=== PATIENT | male | born 1950 | race Hispanic/Latino ===

== ENCOUNTER 2018-01-27 08:08 | Outpatient (CLI) | payer BC ==
[2018-01-27 10:27] LABS: Bilirubin Negative (Negative); Blood, Urine Negative (Negative); Clarity CLEAR (Clear); Glucose, Urine (Dipstick) 250 mg/dL (Negative); Leukocyte Negative (Negative); Nitrite Negative (Negative); Protein, Urine (Dipstick) Negative (Neg-Trace); pH, Urine 6.5 (5.0-9.0)
[2018-01-27 10:31] LABS: Bacteria/HPF None Seen HPF (None Seen); Hyaline Casts/LPF 0-3 HYALINE CAST LPF (0-3 Hyaline); RBC/HPF 0-3 HPF (0-3); Squamous Epithelial None Seen HPF (0-3); WBC/HPF None Seen HPF (0-3)
== END 2018-01-27 08:09 | disposition home or self-care (01) ==
LOC: LABBT 08:08
PROVIDERS: ATTEND Orthopaedic Surgery
DX: Z01.818 Encounter for other preprocedural examination (principal); M17.31 Unilateral post-traumatic osteoarthritis, right knee
CPT/HCPCS: 81001; 87081

== ENCOUNTER 2018-01-27 08:45 | Inpatient (IN) | payer BC, MEDICARE ==
[2018-01-27 08:38] VITALS: BMI 34.2
--- NOTE | 2018-02-03 13:40 | HP ---
HISTORY OF PRESENT ILLNESS: The patient is a 67-year-old male with a long history of progressive pro blems with his right knee which began after having arthroscopic meniscectomy approximately 5 years ag o. He has had progressive pain, difficulty ambulating, walking and getting dressed. The pain is now interfering with day to day activities and has persisted despite rest, restriction of activities, an d use of anti-inflammatory medications. PAST MEDICAL HISTORY: The patient has history of hyperlipidemia, diabetes, and has been seen and venice ared for surgery by Dr. Limon. CURRENT MEDICATIONS: Include metformin and Lipitor. ALLERGIES: Has no known allergies. FAMILY HISTORY/SOCIAL HISTORY/REVIEW OF SYSTEMS: Otherwise, unremarkable. 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 PHYSICAL EXAMINATION: GENERAL: Reveals a healthy male. HEENT: Unremarkable. NECK: Supple. CHEST: Clear. HEART: Regular rate and rhythm. ABDOMEN: Soft, nontender. RECTAL/GENITAL: Exams are deferred. EXTREMITIES: Findings of the right knee, there is mild effusion. There is slight varus deformity. There is no point tenderness or healed arthroscopy puncture sites. Range of motion is 10-120 degrees . There is pain with further flexion. There is no instability. There is a right antalgic gait. Pu lses are trace. Neurovascular exam is intact. Good capillary refill. LABORATORY AND X-RAY FINDINGS: X-rays of the right knee with tricompartmental degenerative arthritis with minimal joint space remaining medially and vascular calcifications. IMPRESSION: 1. Post-traumatic degenerative arthritis, right knee. 2. Adult onset diabetes mellitus. 3. Hypercholesterolemia. PLAN: Right total knee replacement. The nature of the surgery, length of recovery, and potential co mplications such as infection, loss of motion, incomplete relief, delayed wound healing, neurovascula r injury, thromboembolic phenomena, possible transfusion, and need for revision have been discussed i n detail.
[2018-02-07] MEDS ORDERED: Ropivacaine 0.5% HCl/PF (150 MG/30 ML VIAL) ONE (06:57)
[2018-02-07] MEDS ORDERED: Ropivacaine 0.2% HCl/PF (40 MG/20 ML VIAL) ONE (06:57)
[2018-02-07] MEDS ORDERED: PROPOFOL 200 MG/20 ML VIAL ONE (07:00)
[2018-02-07] MEDS ORDERED: Ondansetron HCl/PF 4 MG/2 ML Vial ONE (07:00)
[2018-02-07] MEDS ORDERED: CEFAZOLIN/Water 2 GM/20 ML SYRINGE ONE (08:44)
[2018-02-07] MEDS ORDERED: Sodium Chloride 0.9% 100 ML ONE (08:44)
[2018-02-07] MEDS ORDERED: Vancomycin HCl 1.5 GM in Sodium Chloride 0.9% 250 ML 300 ML IVPB SCH ×2 (09:00→21:00)
[2018-02-07] MEDS ORDERED: Fentanyl 100 MCG/2 ML VIAL ONE ×2 (09:24→11:39)
[2018-02-07] MEDS ORDERED: Midazolam HCl 2 mg/2 ml Vial ONE (09:24)
[2018-02-07] MEDS ORDERED: traMADol HCl 50 MG TAB PO PRN ×3 (09:37→15:04)
[2018-02-07] MEDS ORDERED: Ondansetron HCl/PF 4 MG/2 ML Vial IVP PRN ×2 (09:37→15:04)
[2018-02-07] MEDS ORDERED: Ropivacaine HCl/PF 250 ML in Premix Bag 1 BAG NERVE BLCK SCH (09:37)
[2018-02-07] MEDS ORDERED: HYDROcodone/Acetaminophen 10/325 mg Tablet PO PRN ×3 (09:37→15:04)
[2018-02-07] MEDS ORDERED: Promethazine HCl 25 MG/ML VIAL IM PRN (09:37)
[2018-02-07] MEDS ORDERED: Zolpidem Tartrate 5 MG TAB PO PRN ×2 (09:37→15:04)
[2018-02-07] MEDS ORDERED: Fentanyl 100 MCG/2 ML VIAL IV PRN (09:38)
[2018-02-07] MEDS ORDERED: Ketorolac Tromethamine 30 MG/ML VIAL IVP SCH ×2 (12:00→15:04)
[2018-02-07] MEDS ORDERED: Bupivacaine/Epinephrine 0.25% 30 ML VIAL ONE (12:29)
[2018-02-07] MEDS ORDERED: Tranexamic Acid 1,000 MG in Sodium Chloride 0.9% 100 ML IVPB SCH ×2 (14:15→15:04)
[2018-02-07] MEDS ORDERED: diphenhydrAMINE 25 MG CAP PO PRN (15:04)
[2018-02-07] MEDS ORDERED: Fentanyl 100 MCG/2 ML VIAL SLOW IVP PRN ×2 (15:04)
[2018-02-07] MEDS ORDERED: Acetaminophen 325 MG TAB PO PRN (15:04)
[2018-02-07] MEDS ORDERED: Promethazine HCl 25 MG/ML VIAL SLOW IVP PRN (15:04)
--- NOTE | 2018-02-07 15:22 | RAD ---
RIGHT KNEE TWO VIEWS: History: Total knee arthroplasty, post op. FINDINGS/IMPRESSION: There are recent post op changes of total knee arthroplasty in good position and alignment. Soft tiss ue air is present. POS: H
--- NOTE | 2018-02-07 17:01 | OP ---
DATE OF PROCEDURE: 02/07/2018 PREOPERATIVE DIAGNOSIS: End-stage tricompartmental osteoarthritis of right knee with degenerative ge nu varum and flex contracture. POSTOPERATIVE DIAGNOSIS: End-stage tricompartmental osteoarthritis of right knee with degenerative g enu varum and flex contracture. OPERATIVE PROCEDURE: Cemented cruciate-sparing computer-assisted navigated right total knee arthropl germán. SURGEON: Tao Marinelli M.D. SWEET POTATO DISINTEGRATOR: Jad Mayes PA-C. ANESTHESIA: General via laryngeal mask airway augmented with indwelling adductor canal block with a single shot sciatic block. COMPONENTS USED: [facility] [employer], Triathlon, cemented cruciate-sparing size 5 femoral component with a cemented cruciate-sparing size 5 universal tibial baseplate, 11 mm polyethylene fixed bearing insert, A35 patellar button. TOURNIQUET TIME: 91 minutes at 300 mmHg. ESTIMATED BLOOD LOSS: Less than 100 mL. FINDINGS: End-stage severe degenerative tricompartmental disease, bone on bone arthrosis, periarticu lar osteophyte formation, large serous effusion, hypertrophic synovium. DRAINS: None. SPECIMENS: None. COMPLICATIONS: None. COUNTS: Correct. INPUT: 1500 crystalloid. OUTPUT: None recorded. INDICATIONS FOR SURGERY: Edwardo is a 67-year-old male who has had progressive right knee pain amplified with standing and walking for the last 5-7 years, failed conservative management and elected to proceed with total knee arthroplasty as a definitive treatment of his pain. PROCEDURE IN DETAIL: After informed consent was obtained in the preoperative holding area. The gracie ent was taken to the operative suite where general anesthesia was induced. Once adequate level of ge neral anesthesia was obtained, the patient was positioned and a well-padded tourniquet was placed katharina und the right proximal thigh. The right lower extremity was then prepped and draped in the usual jim rile fashion. Prior to exsanguination, a time out was called and all members of the surgical team ag césar upon site, surgeon, and patient. The extremity was then exsanguinated and the tourniquet was ra ised. A midline longitudinal incision was then made directly over the patella extending two fingerbr eadths above the superior pole of the patella and two fingerbreadths inferior to the inferior patella r pole of the patella. Deeper subcutaneous layers were dissected sharply and local bleeding was cont rolled with Bovie electrocautery. A quad tendon longitudinal split was then made sharply and a media n parapatellar arthrotomy was carried out both sharp and with Bovie electrocautery, carried down to o ne fingerbreadth medial to the tibial tubercle. The knee was then placed into flexion and the patell a was everted nicely, and a copious fat pad ectomy was performed allowing for greater exposure of the tibia. The computer-assisted distal femoral fiducial was then placed and pinned firmly, and the dis betzaida femoral cutting guide was pinned firmly into place. The oscillating saw was then used to remove the appropriate amount of bone. The 4-in-1 cutting block was then placed on the distal femur and the oscillating saw was used to remove the appropriate amount of bone off of the anterior, posterior, an d chamfer cuts. After completion of the chamfer cuts, the box-cutting guide was placed, malleted fir mly into place and pinned securely, and an osteotome was used to make the distal cut and the oscillat ing saw was then used to make the medial and lateral box cuts. This came out quite nicely and was re moved with Bovie electrocautery, and the oscillating saw was then used to broaden the lateral medial resendez of the box cut. After completion of bone cuts, the anterior cruciate ligament was resected sha rply and the posterior cruciate ligament retractor was placed and the tibia was subluxed for better e xposure. Partial meniscectomies were carried out, and the tibial computer-assisted fiducial was pinn ed, and the cutting guide was placed. Oscillating saw was then used to remove the bone with Hohmann retractors used to take care and protect the collateral ligaments. After the tibial resection was pe rformed, a laminar sonographer was placed in between the freshened bone cuts. The knee placed at 90 deg justin and further bilateral meniscectomies were carried out, and the curved osteotome and curettage wa s used to remove any excess bone spurs in the posterior compartment. The trial femoral component, ti bial baseplate were placed with the appropriate polyethylene trial insert with an appropriate polyeth ylene spacer and patellar button. The knee was taken through full range of motion with flexion and e xtension from 0-90 degrees and patellar broach squarely in the trochlea without any squinting or sub luxation noted. The knee was also stable to varus and valgus stressing at 0, 15, 45, and 90 degrees of flexion. The drawer was negative. All trial components were then removed and the keel punch was u sed to provide the appropriate defect in the tibia with a mallet. The freshened bone cuts were copio usly irrigated with pulsatile lavage of about 1-1/2 liters to remove all excess debris. The freshene d bone cuts were then dried and with suction and lap sponge. The knee was placed in flexion and retr actors were placed to provide access to all bone cuts. Tobramycin impregnated methyl methacrylate ce ment was then placed on the freshened bone cuts and implants which were malleted firmly into place. Curettage and [place] elevators were used to remove any excess bone cement. The knee was placed into f ull extension and the patellar button was placed under compression, and the cement was allowed to cur e. Once completed, the components were again taken through full range of motion and copious irrigati on of the knee was carried out with another liter of normal saline. All components were inspected fu lly with full range of motion and varus and valgus stressing. There was no laxity noted and full exte nsion was observed clinically. Primary closure was accomplished with #2 interrupted Vicryl stitch of the arthrotomy defect. This was oversewn with a #2 running Quill barbed stitch. The subcutaneous l jesús was then closed with a running 0 barbed Monocryl stitch and skin closure accomplished with a run victor manuel subcuticular 3-0 Monocryl barbed Quill stitch and augmented with cement on the skin. Tourniquet was lowered. Good spontaneous return of distal pulses was noted clinically and a sterile dressing w as applied to the incision. The procedure was terminated without any complications. The patient was awakened in the operative suite and taken to the recovery room in stable condition.
[2018-02-07] MEDS ORDERED: HumaLOG 300 UNITS/3 ML VIAL SC PRN ×2 (17:13)
[2018-02-07] MEDS ORDERED: Dextrose 50% Abboject 50 ML SYRINGE SLOW IVP PRN (17:13)
[2018-02-07] MEDS ORDERED: Dextrose 5% in Water 1,000 ML IV PRN (17:13)
[2018-02-07] MEDS: Ferrous Gluconate 324 MG TAB PO SCH ×2 (17:42→20:56)
[2018-02-07] MEDS: Aspirin 81 mg Enteric Coated Tablet PO SCH ×2 (17:42→21:09)
[2018-02-07] MEDS: Multivitamin W/ Minerals 1 TAB PO SCH (17:43)
[2018-02-07] MEDS: Senokot S 8.6-50 MG TAB PO SCH ×2 (17:43→20:57)
[2018-02-07] MEDS: Sodium Chloride 0.9% 1,000 ML IV SCH (17:44)
--- NOTE | 2018-02-07 17:47 | CON ---
DATE OF CONSULTATION: 02/07/2018 PRIMARY CARE PHYSICIAN: Timothy Limon M.D. REQUESTING DOCTOR: Tao Marinelli M.D. with Orthopedics. REASON FOR CONSULTATION: Medical management, status post total knee arthroplasty. HISTORY OF PRESENT ILLNESS: Mr. Kwon is a pleasant 67-year-old male with a history of diabetes mellitus type 2, on oral medications, hypertension, essential and hyperlipidemia who is postop day 0 from right total knee arthroplasty. There were no noted intraoperative complications. He has already been out of bed today, walking over 100 steps. He denies any fevers or chills. No ch est pain or shortness of breath. No nausea, vomiting, diarrhea, or constipation. PAST MEDICAL HISTORY: 1. Diabetes mellitus type 2. 2. Hypertension, essential. 3. Hyperlipidemia. REGULAR HOME MEDICATIONS: 1. Aspirin 81 mg daily, atorvastatin 10 mg p.o. at bedtime. 2. Lisinopril 10 mg p.o. at bedtime. 3. Metformin 500 mg p.o. b.i.d. 4. Januvia 100 mg p.o. at bedtime. PAST SURGICAL HISTORY: 1. Left thumb reattachment remotely. 2. Bilateral intraocular lens replacement. 3. Left total knee arthroplasty by Jaxon morelos in 06/2012. ALLERGIES: NKDA. FAMILY HISTORY: Negative for clotting or bleeding disorder, no immune dysfunction. SOCIAL HISTORY: Significant for 2-3 beers per day. He does not have any withdrawal symptoms when he goes long periods without drinking. Denies any tobacco use. No IV drug use. He is , [place] mous. His accompanies him. REVIEW OF SYSTEMS: A 12-point review of systems was performed and is negative for all systems except as stated as above. PHYSICAL EXAMINATION: VITAL SIGNS: Temperature current is 97.7, pulse on arrival to floor is 102, blood pressure 153/82, r espiratory rate 18, satting 98% on room air. GENERAL: He is awake. He is alert. He is oriented x3. He is a well-developed, well-nourished Lati n [place] male appears to be in no acute distress. HEENT: Normocephalic, atraumatic. Pupils equal, round, react to light bilaterally. Mucous membrane s moist. There is no visible lesion. No thrush. NECK: Supple. there is no lymphadenopathy, JVD, or thyromegaly. CARDIOVASCULAR: He has normal structure. There are no bruits. LUNGS: Clear. No wheezes, no rales, no rhonchi. ABDOMEN: Soft, is nontender, slightly distended, but non-tympanitic. He has got normal bowel sounds in all four quadrants. There is no rebound, rigidity or guarding. EXTREMITIES: Show no cyanosis, no clubbing. Trace pedal edema bilaterally. Right knee is dressed p ostoperatively and dressing was not removed. SKIN: Otherwise warm, moist, and well perfused. There are no rashes or lesions. MUSCULOSKELETAL: Otherwise negative. Normal to inspection of the large joints except for the right knee, appear normal. There is no evidence of inflammation or palpable effusions. Old left knee repl acement scar is well healed. NEUROLOGIC: Cranial nerves II-XII are grossly intact. He has no focal neurologic deficits. Normal speech pattern, 5/5 strength in all 4 extremities. LABORATORY EVALUATION: Preoperative CBC showed a white count of 5.3, hemoglobin 14.6, hematocrit of 41.8, platelet count is 209,000 on 02/02/2018. INR was normal at 0.9. Chemistries showed a basic me tabolic profile with sodium of 135, potassium 4.1, chloride 106, bicarbonate 22, BUN 19, creatinine 0 .98, and glucose of 103. His calcium was 9.5 and urinalysis was negative. ASSESSMENT AND PLAN: 1. Diabetes mellitus type 2, non-insulin dependent. We will continue his Januvia and his metformin. Eating well already. We will use sliding scale insulin for correction and q.i.d. a.c./bedtime Acc u-Cheks. 2. Hypertension, essential. We will continue his lisinopril. 3. Hyperlipidemia. We will continue his atorvastatin. 4. Degenerative joint disease, status post right total knee arthroplasty. Postop care per Dr. Marinelli and his team. Thank you very much for this consult. We will follow along with you.
[2018-02-07] MEDS: metFORMIN 500 MG TAB PO SCH ×2 (18:01→20:56)
[2018-02-07] MEDS: Ketorolac Tromethamine 30 MG/ML VIAL IVP SCH (18:16)
[2018-02-07] MEDS: CEFAZOLIN/Water 2 GM/20 ML SYRINGE SLOW IVP SCH (18:16)
[2018-02-07] MEDS ORDERED: Alogliptin 25 MG TAB PO SCH (21:00)
[2018-02-07] MEDS ORDERED: Atorvastatin Calcium 10 MG TAB PO SCH (21:00)
[2018-02-07] MEDS ORDERED: Lisinopril 10 MG TAB PO SCH (21:00)
[2018-02-08] MEDS: CEFAZOLIN/Water 2 GM/20 ML SYRINGE SLOW IVP SCH (01:00)
[2018-02-08] MEDS: HYDROcodone/Acetaminophen 10/325 mg Tablet PO PRN ×3 (01:00→09:09)
[2018-02-08] MEDS: Ketorolac Tromethamine 30 MG/ML VIAL IVP SCH ×3 (01:01→11:35)
[2018-02-08] MEDS: Sodium Chloride 0.9% 1,000 ML IV SCH ×2 (01:02→13:38)
[2018-02-08 05:58] LABS: Mean Corpuscular HGB CONC 35.9 g/dL (32.0-36.0); Mean Corpuscular Hemoglobin 34.5 pg (27.0-31.0); Mean Corpuscular Volume 95.9 fL (78.0-98.0); Mean Platelet Volume 7.6 fL (7.4-10.4); Platelet Count 179 thou/uL (130-400); RBC Distribution Width 12.2 % (11.5-14.5); Red Blood Cell (RBC) Count 3.78 mill/uL (4.70-6.10)
[2018-02-08] MEDS: metFORMIN 500 MG TAB PO SCH (08:54)
[2018-02-08] MEDS: Senokot S 8.6-50 MG TAB PO SCH (08:54)
[2018-02-08] MEDS: Aspirin 81 mg Enteric Coated Tablet PO SCH (08:54)
[2018-02-08] MEDS: Multivitamin W/ Minerals 1 TAB PO SCH (08:54)
[2018-02-08] MEDS: Ferrous Gluconate 324 MG TAB PO SCH (08:54)
[2018-02-08] MEDS ORDERED: Ropivacaine 0.2% 550 ML 550 ML NERVE BLCK SCH (10:45)
--- NOTE | 2018-02-08 12:45 | PDOC.PN ---
- Subjective Encounter Start Date: 02/08/18 Encounter Start Time: 10:20 Pt did well overnight, no F/c, no n/V/D/C, leslie po. young controlled, epidural still in. all systems reviewed and neg x as above. anticipates D/c today - Objective MAR Reviewed: Yes Vital Signs & Weight: Vital Signs (12 hours) Temp Pulse Resp BP BP Pulse Ox 02/08/18 09:00 97.9 F 81 18 117/69 95 02/08/18 07:40 98.0 F 77 16 96 02/08/18 03:48 98.0 F 77 16 120/70 96 Weight Admit Weight 225 lb Weight 225 lb I&O: 02/07/18 02/08/18 02/09/18 06:59 06:59 06:59 Intake Total 2800 Balance 2800 Result Diagrams: 02/08/18 05:22 Additional Labs: Accuchecks 02/08/18 02/08/18 02/07/18 11:34 06:52 20:52 POC Glucose 188 H 170 H 255 H 02/07/18 17:55 POC Glucose 198 H Phys Exam - Physical Examination Constitutional: NAD HEENT: PERRLA, moist MMs, sclera anicteric, oral pharynx no lesions Neck: no nodes, no JVD, supple, full ROM Respiratory: no wheezing, no rales, no rhonchi, clear to auscultation bilateral Cardiovascular: RRR, no significant murmur, no rub Gastrointestinal: soft, non-tender, no distention, positive bowel sounds Musculoskeletal: no edema, pulses present R knee without ecchymosis, dressing intact w/o strikethrough Neurological: non-focal, normal sensation, moves all 4 limbs Lymphatic: no nodes Psychiatric: normal affect, A&O x 3 Skin: no rash, normal turgor, cap refill <2 seconds Dx/Plan (1) DM2 (diabetes mellitus, type 2) Status: Chronic Qualifiers: Diabetes mellitus termite technician insulin use: without termite technician use Diabetes mellitus complication status: without complication Qualified Code(s): E11.9 - Type 2 diabetes mellitus without complications (2) HTN (hypertension) Code(s): I10 - ESSENTIAL (PRIMARY) HYPERTENSION Status: Chronic Qualifiers: Hypertension type: essential hypertension Qualified Code(s): I10 - Essential (primary) hypertension (3) HLD (hyperlipidemia) Code(s): E78.5 - HYPERLIPIDEMIA, UNSPECIFIED Status: Chronic Qualifiers: Hyperlipidemia type: unspecified Qualified Code(s): E78.5 - Hyperlipidemia , unspecified (4) DJD (degenerative joint disease) Code(s): M19.90 - UNSPECIFIED OSTEOARTHRITIS, UNSPECIFIED SITE Status: Chronic Qualifiers: Osteoarthritis location: multiple joints Osteoarthritis type: primary Qualified Code(s): M15.0 - Primary generalized (osteo)arthritis - Plan cont current plan of care, PT/OT, out of bed/ambulate * .
[2018-02-08 13:45] VITALS: BP 105/67; TEMP 98.3
== END 2018-02-08 15:30 | disposition home or self-care (01) | DRG 470 ==
LOC: SJJU 02-07 08:17 → SURG B 02-07 14:58
PROVIDERS: ADMIT Orthopaedic Surgery; ATTEND Orthopaedic Surgery
PROC: 0SRC0J9 Replacement of Right Knee Joint with Synthetic Substitute, Cemented, Open Approach (ICD-10-PCS; principal; 2018-02-07)
DX: M17.31 Unilateral post-traumatic osteoarthritis, right knee (principal); E11.9 Type 2 diabetes mellitus without complications; E78.5 Hyperlipidemia, unspecified; M21.161 Varus deformity, not elsewhere classified, right knee; E78.00 Pure hypercholesterolemia, unspecified; I10 Essential (primary) hypertension; Z96.652 Presence of left artificial knee joint; M24.561 Contracture, right knee
CPT/HCPCS: 36415; 36416; 85027; A4306; C1713; C1776; G8978-GP-CL; G8979-GP-CJ; J2250; J2795; J3010; J3370; J7050

== ENCOUNTER 2018-02-02 08:23 | Outpatient (CLI) | payer BC ==
[2018-02-02 09:28] LABS: #Basophils 0.1 thou/uL (0.0-0.2); #Eosinphils 0.1 thou/uL (0.0-0.7); #Lymphocytes 1.8 thou/uL (1.20-3.40); #Monocytes 0.4 thou/uL (0.11-0.59); %Basophils 0.9 % (0.0-1.0); %Eosinophils 1.9 % (0.0-10.0); %Lymphocytes 33.1 % (21.0-51.0); %Monocytes 7.2 % (0.0-10.0); %Neutrophils 56.8 % (42.0-75.0); Hemoglobin 14.6 g/dL (14.0-18.0); Mean Corpuscular HGB CONC 34.9 g/dL (32.0-36.0); Mean Corpuscular Hemoglobin 33.1 pg (27.0-31.0); Mean Corpuscular Volume 94.9 fL (78.0-98.0); Mean Platelet Volume 8.3 fL (7.4-10.4); Platelet Count 209 thou/uL (130-400); RBC Distribution Width 12.3 % (11.5-14.5); White Blood Cell (WBC) Count 5.3 thou/uL (4.8-10.8)
[2018-02-02 09:32] LABS: INR-International Normal Ratio 0.9; Prothrombin Time 12.6 SEC (12.0-14.7)
[2018-02-02 09:39] LABS: Anion Gap 11 mmol/L (10-20); BUN (Urea Nitrogen) 19 mg/dL (8.4-25.7); Calc. Creatinine Clearance 0 mL/min (70-130); Calcium 9.5 mg/dL (7.8-10.44); Carbon Dioxide 22 mmol/L (23-31); Chloride 106 mmol/L (98-107); Estimated GFR-MDRD 77; Glucose 141 mg/dL (80-115); Potassium 4.1 mmol/L (3.5-5.1); Sodium 135 mmol/L (136-145)
== END 2018-02-02 08:24 | disposition home or self-care (01) ==
LOC: LABBT 08:23
PROVIDERS: ATTEND Orthopaedic Surgery
DX: Z01.818 Encounter for other preprocedural examination (principal); M17.31 Unilateral post-traumatic osteoarthritis, right knee
CPT/HCPCS: 80048; 85025; 85610; 86850; 86900; 86901